=== PATIENT | female | born 1955 | race Caucasian/White ===

== ENCOUNTER → 2022-02-10 | Outpatient (CLI) | payer MEDICARE, OTHER ==
[~2022-02-10] MED LIST: ASPIRIN CHEWABL81 MG PO; CRESTOR40 MG PO; NEXIUM40 MG PO; OMNICEF 300 MG300 MG PO; PROAIR HFA8.5 GM INH; SINGULAIR10 MG PO; SPIRIVA18 MCG INH; VITAMIN B-12500 MCG PO
== END ==
LOC: KOH-I 15:50
DX: S82.832A Other fracture of upper and lower end of left fibula, initial encounter for closed fracture (principal)
CPT/HCPCS: 73610

== ENCOUNTER → 2022-03-04 | Outpatient (CLI) | payer MEDICARE, OTHER | LOC: KOH-I 13:39 | DX: S82.832D Other fracture of upper and lower end of left fibula, subsequent encounter for closed fracture with routine healing (principal) | CPT/HCPCS: 73610 ==

== ENCOUNTER → 2022-03-25 | Outpatient (CLI) | payer MEDICARE, OTHER | LOC: KOH-I 14:04 | DX: S82.832D Other fracture of upper and lower end of left fibula, subsequent encounter for closed fracture with routine healing (principal) | CPT/HCPCS: 73610 ==